=== PATIENT | male | born 2000 | race Two or more races ===

== ENCOUNTER 2023-05-16 15:49 | Emergency (ER) | payer MEDICAID ==
[~2023-05-16] VITALS: Ht 167.6 cm; Wt 71.7 kg
[2023-05-16] MEDS ORDERED: NAPR-1164 PO (16:29)
[2023-05-16 17:48] VITALS: BP 128/78; TEMP 209.5; O2SAT 99
== END 2023-05-16 17:49 | disposition home or self-care (01) ==
LOC: ER 16:07
DX: S86.012A Strain of left Achilles tendon, initial encounter (principal); Z79.899 Other long term (current) drug therapy; Y93.39 Activity, other involving climbing, rappelling and jumping off; Y93.43 Activity, gymnastics; Y92.89 Other specified places as the place of occurrence of the external cause; Y99.8 Other external cause status